=== PATIENT | male | born 1995 | race Hispanic/Latino ===

== ENCOUNTER 2017-07-03 09:29 | Emergency (ER) | payer SELFPAY ==
--- NOTE | 2017-07-03 10:36 | RAD ---
CHEST ONE VIEW: History: Chest pain. Comparison: None. FINDINGS: Normal cardiac silhouette. The pulmonary vessels and hilum are normal. No mass. No consolidation. No pneumothorax or osseous abnormality. IMPRESSION: No acute cardiopulmonary process. POS: [id number]
== END 2017-07-03 11:05 | disposition home or self-care (01) ==
LOC: ERS 09:29
DX: R07.89 Other chest pain (principal); M25.512 Pain in left shoulder
CPT/HCPCS: 71010; 93005